=== PATIENT | male | born 1975 | race African-American/Black ===

== ENCOUNTER 2024-05-30 10:06 | Emergency (ER) | payer MEDICAID ==
[~2024-05-30] VITALS: Ht 172.7 cm; Wt 65.0 kg
[2024-05-30 10:08] VITALS: BP 136/84; PULSE 79; RESP 20; TEMP 98.1; O2SAT 100
[2024-05-30] MEDS ORDERED: MORPHINE SULFATE 4 MG/ML INJ (FOR IV/IM USE) IV ONE (10:30)
[2024-05-30] MEDS ORDERED: TETANUS, DIPHTHERIA, PERTUSSIS VAC/PF 0.5ML (>10YR OLD) IM ONE (10:30)
[2024-05-30] MEDS ORDERED: ONDANSETRON HCL 4MG/2ML INJ IV ONE (10:30)
[2024-05-30] MEDS ORDERED: CEFAZOLIN 1000MG PREMIX 50 ML IV ONE (10:30)
[2024-05-30] MEDS ORDERED: LIDOCAINE HCL 1% 20ML VIAL INFIL ONE (10:30)
== END 2024-05-30 11:08 | disposition left against medical advice (07) ==
LOC: ER 10:06
DX: S61.210A Laceration without foreign body of right index finger without damage to nail, initial encounter (principal); W20.8XXA Other cause of strike by thrown, projected or falling object, initial encounter; Y93.89 Activity, other specified; Y92.89 Other specified places as the place of occurrence of the external cause; Y99.9 Unspecified external cause status
CPT/HCPCS: 99281; J0690